=== PATIENT | female | born 1995 | race Caucasian/White ===

== ENCOUNTER 2018-03-30 20:27 | Emergency (ER) | payer BC ==
[~2018-03-30] VITALS: Ht 162.6 cm; Wt 77.3 kg
[~2018-03-30 20:27] MED LIST: DORYX PO; NORCO 325 MG-51 TAB PO; SINGULAIR 110 MG/TAB PO; YAZ 28 3 MG-0.01 TAB PO
[2018-03-30 20:31] VITALS: TEMP 98.6
[2018-03-30] MEDS ORDERED: LEXAPRO 10MG10 MG PO (21:19)
[2018-03-30] MEDS ORDERED: MELATONIN5 M1 SL (21:20)
[2018-03-30] MEDS ORDERED: KLONOPIN WAFER0.5 MG PO (21:20)
[2018-03-30 21:39] LABS: COLLECTION METHOD CLEAN CATCH
[2018-03-30 21:41] LABS: BASO # 0.1 (0.0-0.2); BASO % 0.6 % (0.0-2.0); EOS # 0.2 (0.0-0.7); EOS % 1.2 % (0-4.0); GRAN # 9.6 (1.4-6.5); GRAN % 78.4 % (42.2-75.2); LYMPH # 1.6 (1.2-3.4); LYMPH % 12.9 % (20.0-51.0); MEAN CELL VOLUME 87 fl (80.0-100.0); MEAN CORPUSCULAR HEMOGLOBIN 29 pg (27.0-31.0); MEAN CORPUSCULAR HGB CONC 33 g/dl (33.0-37.0); MEAN PLATELET VOLUME 10.2 fl (7.4-10.4); MONO # 0.8 (0.1-0.6); MONO % 6.5 % (1.7-9.3); PLATELET COUNT 340 K/mm3 (130-400); RED BLOOD COUNT 4.12 M/mm3 (4.10-5.30); REDCELL DISTRIBUTION WIDTH-CV 13.7 % (11.5-14.5)
[2018-03-30 21:45] LABS: PH 6 (5-8); SQUAMOUS EPITHELIAL 0-2 /hpf; URINE APPEARANCE Clear; URINE BACTERIA None Seen /hpf; URINE BILIRUBIN Negative (NEGATIVE); URINE BLOOD Negative (NEGATIVE); URINE COLOR Straw; URINE GLUCOSE Negative (NEGATIVE); URINE KETONE Negative (NEGATIVE); URINE LEUKOCYTE ESTERASE Negative (NEGATIVE); URINE NITRATE Negative (NEGATIVE); URINE PROTEIN(semi-quant) Negative (NEGATIVE); URINE RBC 0-2 /hpf; URINE UROBILINOGEN Negative (NEGATIVE)
[2018-03-30 21:53] VITALS: BP 116/76
[2018-03-30 21:54] LABS: ALANINE AMINOTRANSFERASE 17 U/L (9-52); ALKALINE PHOSPHATASE 70 U/L (50-136); ANION GAP 11 mmol/L (7-16); AST,SGOT 19 U/L (15-37); BILIRUBIN,TOTAL 0.2 mg/dL (0.0-1.0); BLOOD UREA NITROGEN 11 mg/dL (7-17); CALCIUM 9.7 mg/dL (8.4-10.2); CARBON DIOXIDE 26 mmol/L (22-30); CHLORIDE 100 mmol/L (98-107); CREATININE, serum 0.71 mg/dL (0.52-1.25); GLUCOSE 115 mg/dL (74-106); LIPASE 39 U/L (23-300); POTASSIUM 3.8 mmol/L (3.4-5.0); SODIUM 136 mmol/L (137-145)
[2018-03-30 22:07] LABS: TROPONIN-I < 0.012 ng/mL (0.000-0.034)
[2018-03-30] MEDS ORDERED: BENTYL 20MG20 MG/TAB PO (22:57)
[2018-03-30] MEDS ORDERED: ZOFRAN 4MG T4 MG/TAB PO (22:57)
[2018-03-30 23:20] VITALS: PULSE 57
== END 2018-03-30 23:20 | disposition home or self-care (01) ==
LOC: COL.ER 20:27
PROVIDERS: Emergency Medicine
DX: R19.7 Diarrhea, unspecified (principal); R10.30 Lower abdominal pain, unspecified; R55 Syncope and collapse; F32.9 Major depressive disorder, single episode, unspecified; F41.9 Anxiety disorder, unspecified; Z88.2 Allergy status to sulfonamides
CPT/HCPCS: J1885; J2405; J7030